=== PATIENT | female | born 1985 | race Caucasian/White ===

== ENCOUNTER 2017-11-23 17:13 | Emergency (ER) | payer BC ==
[2017-11-23 18:03] LABS: ABS Basophils 0 10^3/ul (0-0.2); ABS Eosinophils 0.5 10^3/ul (0-0.6); ABS Lymphocytes 2.2 10^3/ul (1.0-4.8); ABS Monocytes 0.7 10^3/ul (0-0.8); ABS Neutrophils 4.8 10^3/ul (1.5-7.7); ABS Nucleated RBC 0 10^3/ul; Eosinophil % 6.2 % (0-6); Hematocrit 38 % (35-47); Lymphocyte % 26.5 % (25-47); Mean Corpuscular HGB Conc 34 g/dl (31-36); Mean Corpuscular Hemoglobin 32 pg (27-31); Mean Corpuscular Volume 96 fL (80-97); Mean Platelet Volume 8.2 um3 (7.4-10.4); Nucleated Red Blood Cells % 0; Platelet Count 218 10^3/ul (150-450); Red Cell Distribution Width 13 % (10.5-15); White Blood Count 8.2 10^3/ul (3.5-10.8)
[2017-11-23 18:24] LABS: EGFR Non-African American 64.7 (>60)
--- NOTE | 2017-11-23 19:03 | RAD ---
Indication: RIGHT lower quadrant pain with pressure and midline pain for 4 days. Comparison: May 20, 2005 CT. Technique: Transvaginal pelvic ultrasound. Report: 6.6 x 3.3 x 5.3 cm anteverted uterus with 6.3 mm endometrium. IUD appears in appropriate position within the endometrial cavity. Physiologic small volume of free fluid in the cul-de-sac. 3.9 x 1.8 x 2.8 cm RIGHT ovary with documented vascular flow is remarkable for a unilocular 2.0 x 1.6 x 2.2 cm cyst without complex features consistent with a follicular cyst. 3.7 x 2.6 x 3.9 cm LEFT ovary with documented vascular flow is remarkable for a 2.5 x 2.0 x 2.4 cm cyst with a reticulated pattern of low level internal echoes devoid of intrinsic vascularity consistent with a hemorrhagic cyst without concern given small size. Negative for extra ovarian adnexal region lesions. IMPRESSION: 1. IUD appears in appropriate position. 2. Physiologic small volume of free fluid. 3. 2.2 cm follicular cyst at the RIGHT ovary and 2.5 cm hemorrhagic cyst at the LEFT ovary without concern.
--- NOTE | 2017-11-23 19:05 | RAD ---
INDICATION: RIGHT lower quadrant pain during exam in the emergency room. COMPARISON: May 20, 2005 CT documenting the appendix superficial to the RIGHT external iliac vessels. TECHNIQUE: Ultrasound of the right lower quadrant. REPORT AND IMPRESSION: Nondiagnostic exam due to nonvisualization of the appendix. No RIGHT lower quadrant free fluid or adenopathy visualized to suggest an acute RIGHT lower quadrant inflammatory process. Correlate with clinical assessment and consider CT for further evaluation if deemed appropriate.
[2017-11-23 19:16] LABS: Urine Appearance Clear; Urine Blood 1+ (Negative); Urine Color Yellow; Urine Ketones Negative (Negative); Urine Protein Negative (Negative); Urine Specific Gravity 1.025 (1.010-1.030); Urine Urobilinogen Negative (Negative)
[2017-11-23] MEDS ORDERED: Iohexol 300* (CONTRAST) 10 ML SDV IV ONE (19:32)
[2017-11-23] MEDS ORDERED: Ketorolac INJ* 30 MG/ML 1 ML VIAL IV PUSH ONE (19:48)
[2017-11-23 21:07] VITALS: BP 124/72
--- NOTE | 2017-11-24 00:14 | ED ---
Matthew Larson Jennifer, scribed for Ricci Hill MD on 11/23/17 at 2007 . Progress - Progress Note Progress Note: The patient is a sign out from Dr. Meredith pending US appendix, US transvaginal. The patient is a 32 year old female with pain near umbilicus, more on the left side. US shows left hemorrhagic cyst. McBurney's point was nontender. No rebound or guarding. Most pain is left pelvic and midline pelvic. Patient was given Toradol. - Results/Orders Results/Orders: Transvaginal US. Interpreted by a radiologist. IMPRESSION: 1. IUD appears in appropriate position. 2. Physiologic small volume of free fluid. 3. 2.2 cm follicular cyst at the RIGHT ovary and 2.5 cm hemorrhagic cyst at the LEFT ovary without concern. Dr. Hill has reviewed this report. Appendix US. Interpreted by a radiologist. IMPRESSION:Nondiagnostic exam due to nonvisualization of the appendix. No RIGHT lower quadrant free fluid or adenopathy visualized to suggest an acute RIGHT lower quadrant inflammatory process. Correlate with clinical assessment and consider CT for further evaluation if deemed appropriate. Dr. Hill has reviewed this report. Re-Evaluation - Re-Evaluation First Eval Re-Evaluation Time: 20:17 Change: Improved Comment: Patient's pain is much better with Toradol. Course/Dx - Course Course Of Treatment: Patient was signed out from outgoing ER physician to me. She had an ultrasound of her pelvis and right lower quadrant. She has no McBurney point tenderness though the appendix was not seen on ultrasound. She is thin and likely has no visualization as it is noninflamed. Her pain is mostly left of midline and suprapubic/pelvic. She has a hemorrhagic cyst seen on ultrasound in that region. She is very comfortable and her pain was relieved with Toradol. There is no rebound or guarding. She has had symptoms over 4 days which is very unlikely for appendicitis. Regardless, she was given appendicitis warnings and will follow up with her primary care physician. - Diagnoses Provider Diagnoses: Hemorrhagic ovarian cyst Discharge - Sign-Out/Discharge Documenting (check all that apply): Discharge/Admit/Transfer - Discharge Plan Condition: Improved Disposition: HOME Patient Education Materials: Ovarian Cyst (ED) Referrals: Loly Guzman MD [Primary Care Provider] - Additional Instructions: Call first thing in the morning to follow up with your regular doctor or OB/ BIOSTATISTICS PROFESSOR. Ibuprofen as needed for discomfort. Return with fever, pain in the right lower quadrant as shown, vomiting, worse or other concerns as discussed. - Billing Disposition and Condition Condition: STABLE Disposition: HOME The documentation as recorded by the Matthew león Jennifer accurately reflects the service I personally performed and the decisions made by me, Ricci Hill MD.
--- NOTE | 2017-12-06 07:58 | ED ---
Pricilla Larson Elizabeth, scribed for Ervin Meredith MD on 11/23/17 at 1748 . Abdominal Pain/Female - HPI Summary HPI Summary: This patient is a 32 year old F presenting to [facility] upon referral from [facility] with a chief complaint of abd pain since 3 days ago. The patient notes that she is concerned that it may be appendicitis. The patient rates the pain 5/10 in severity. Symptoms aggravated by eating. Symptoms alleviated by nothing. Patient denies dysuria, hematuria, diarrhea, and vaginal discharge. LNMP was 2-3 weeks ago. The patient has previously had a cholecystectomy. - History of Current Complaint Chief Complaint: EDAbdPain Stated Complaint: ABD PAIN Time Seen by Provider: 11/23/17 17:36 Hx Obtained From: Patient Onset/Duration: Lasting Days - 3 days, Still Present Timing: Constant Severity Initially: Mild Severity Currently: Mild Pain Intensity: 5 Pain Scale Used: 0-10 Numeric Location: Discrete At: RLQ, Discrete At: LLQ Radiates: Yes Aggravating Factor(s): Food Alleviating Factor(s): Nothing Associated Signs and Symptoms: Negative: Constipation, Vaginal Discharge, Diarrhea Allergies/Adverse Reactions: Allergies Allergy/AdvReac Type Severity Reaction Status Date / Time paroxetine [From Paxil] Allergy Unknown Verified 11/23/17 17:26 Reaction Details pineapple Allergy Hives Verified 11/23/17 17:27 PMH/Surg Hx/FS Hx/Imm Hx Endocrine/Hematology History: Denies: Hx Diabetes Cardiovascular History: Denies: Hx Hypertension Respiratory History: Denies: Hx Chronic Obstructive Pulmonary Disease (COPD) - Cancer History Hx Chemotherapy: No Hx Radiation Therapy: No - Surgical History Surgery Procedure, Year, and Place: cholecystectomy Infectious Disease History: No Infectious Disease History: Denies: Traveled Outside the [place] in Last 30 Days - Family History Known Family History: Negative: Diabetes - Social History Alcohol Use: Rare Substance Use Type: Reports: None Smoking Status (MU): Heavy Every Day Tobacco Smoker Review of Systems Negative: Fever, Chills Negative: Erythema Negative: Sore Throat Negative: Chest Pain Negative: Shortness Of Breath, Cough Positive: Abdominal Pain. Negative: Vomiting, Diarrhea, Nausea Negative: dysuria, discharge, hematuria Negative: Myalgia, Edema Negative: Rash Neurological: Other - NEGATIVE DIZZINESS All Other Systems Reviewed And Are Negative: Yes Physical Exam - Summary Physical Exam Summary: Constitutional: Well-developed, Well-nourished, Alert. (-) Distressed Skin: Warm, Dry HENT: Normocephalic; Atraumatic Eyes: Conjunctiva normal Neck: Musculoskeletal ROM normal neck. (-) JVD, (-) Stridor, (-) Tracheal deviation Cardio: Rhythm regular, rate normal, Heart sounds normal; Intact distal pulses; The pedal pulses are 2+ and symmetric. Radial pulses are 2+ and symmetric. (-) Murmur Pulmonary/Chest wall: Effort normal. (-) Respiratory distress, (-) Wheezes, (-) Rales Abd: Soft, RLQ Tenderness, (-) Distension, (-) Guarding, (-) Rebound Musculoskeletal: (-) Edema Lymph: (-) Cervical adenopathy Neuro: Alert, Oriented x3 Psych: Mood and affect Normal Triage Information Reviewed: Yes Vital Signs On Initial Exam: Initial Vitals Temp Pulse Resp BP Pulse Ox 98.6 F 81 16 164/89 98 11/23/17 17:21 11/23/17 17:21 11/23/17 17:21 11/23/17 17:21 11/23/17 17:21 Vital Signs Reviewed: Yes Diagnostics - Vital Signs Vital Signs Temp Pulse Resp BP Pulse Ox 11/23/17 17:21 98.6 F 81 16 164/89 98 - Laboratory Lab Results: Lab Results 11/23/17 11/23/17 11/23/17 Range/Units 17:48 17:48 17:48 WBC 8.2 (3.5-10.8) 10^3/ul RBC 4.00 (4.0-5.4) 10^6/ul Hgb 13.0 (12.0-16.0) g/dl Hct 38 (35-47) % MCV 96 (80-97) fL MCH 32 H (27-31) pg MCHC 34 (31-36) g/dl RDW 13 (10.5-15) % Plt Count 218 (150-450) 10^3/ul MPV 8.2 (7.4-10.4) um3 Neut % (Auto) 58.0 (38-83) % Lymph % (Auto) 26.5 (25-47) % [place] % (Auto) 8.8 H (0-7) % Eos % (Auto) 6.2 H (0-6) % Baso % (Auto) 0.5 (0-2) % Absolute Neuts (auto) 4.8 (1.5-7.7) 10^3/ul Absolute Lymphs (auto) 2.2 (1.0-4.8) 10^3/ul Absolute Monos (auto) 0.7 (0-0.8) 10^3/ul Absolute Eos (auto) 0.5 (0-0.6) 10^3/ul Absolute Basos (auto) 0 (0-0.2) 10^3/ul Absolute Nucleated RBC 0 10^3/ul Nucleated RBC % 0 Sodium 136 L (139-145) mmol/L Potassium TNP Chloride 106 (101-111) mmol/L Carbon Dioxide 25 (22-32) mmol/L Anion Gap 5 (2-11) mmol/L BUN 18 (6-24) mg/dL Creatinine 1.00 H (0.51-0.95) mg/dL Est GFR ( Amer) 83.2 (>60) Est GFR (Non-Af Amer) 64.7 (>60) BUN/Creatinine Ratio 18.0 (8-20) Glucose 92 (70-100) mg/dL Lactic Acid 0.6 (0.5-2.0) mmol/L Calcium 9.2 (8.6-10.3) mg/dL Total Bilirubin 0.40 (0.2-1.0) mg/dL AST TNP ALT 9 (7-52) U/L Alkaline Phosphatase 46 (34-104) U/L C-Reactive Protein 5.07 H (< 5.00) mg/L Total Protein 7.3 (6.4-8.9) g/dL Albumin 4.4 (3.2-5.2) g/dL Globulin 2.9 (2-4) g/dL Albumin/Globulin Ratio 1.5 (1-3) Lipase 24 (11.0-82.0) U/L Beta HCG, Quant < 0.60 mIU/mL Urine Color Urine Appearance Urine pH (5-9) Ur Specific [place] (1.010-1.030) Urine Protein (Negative) Urine Ketones (Negative) Urine Blood (Negative) Urine Nitrate (Negative) Urine Bilirubin (Negative) Urine Urobilinogen (Negative) Ur Leukocyte Esterase (Negative) Urine WBC (Auto) (Absent) Urine RBC (Auto) (Absent) Ur Squamous Epith Cells (Absent) Urine Bacteria (Absent) Urine Glucose (Negative) 11/23/17 11/23/17 Range/Units 18:51 19:27 WBC (3.5-10.8) 10^3/ul RBC (4.0-5.4) 10^6/ul Hgb (12.0-16.0) g/dl Hct (35-47) % MCV (80-97) fL MCH (27-31) pg MCHC (31-36) g/dl RDW (10.5-15) % Plt Count (150-450) 10^3/ul MPV (7.4-10.4) um3 Neut % (Auto) (38-83) % Lymph % (Auto) (25-47) % [place] % (Auto) (0-7) % Eos % (Auto) (0-6) % Baso % (Auto) (0-2) % Absolute Neuts (auto) (1.5-7.7) 10^3/ul Absolute Lymphs (auto) (1.0-4.8) 10^3/ul Absolute Monos (auto) (0-0.8) 10^3/ul Absolute Eos (auto) (0-0.6) 10^3/ul Absolute Basos (auto) (0-0.2) 10^3/ul Absolute Nucleated RBC 10^3/ul Nucleated RBC % Sodium (139-145) mmol/L Potassium 3.9 Chloride (101-111) mmol/L Carbon Dioxide (22-32) mmol/L Anion Gap (2-11) mmol/L BUN (6-24) mg/dL Creatinine (0.51-0.95) mg/dL Est GFR ( Amer) (>60) Est GFR (Non-Af Amer) (>60) BUN/Creatinine Ratio (8-20) Glucose (70-100) mg/dL Lactic Acid (0.5-2.0) mmol/L Calcium (8.6-10.3) mg/dL Total Bilirubin (0.2-1.0) mg/dL AST 14 ALT (7-52) U/L Alkaline Phosphatase (34-104) U/L C-Reactive Protein (< 5.00) mg/L Total Protein (6.4-8.9) g/dL Albumin (3.2-5.2) g/dL Globulin (2-4) g/dL Albumin/Globulin Ratio (1-3) Lipase (11.0-82.0) U/L Beta HCG, Quant mIU/mL Urine Color Yellow Urine Appearance Clear Urine pH 6.0 (5-9) Ur Specific [place] 1.025 (1.010-1.030) Urine Protein Negative (Negative) Urine Ketones Negative (Negative) Urine Blood 1+ A (Negative) Urine Nitrate Negative (Negative) Urine Bilirubin Negative (Negative) Urine Urobilinogen Negative (Negative) Ur Leukocyte Esterase Negative (Negative) Urine WBC (Auto) Trace(0-5/hpf) (Absent) Urine RBC (Auto) 1+(3-5/hpf) A (Absent) Ur Squamous Epith Cells Present A (Absent) Urine Bacteria 1+ A (Absent) Urine Glucose Negative (Negative) Result Diagrams: 11/23/17 17:48 11/23/17 19:27 Lab Statement: Any lab studies that have been ordered have been reviewed, and results considered in the medical decision making process. Re-Evaluation - Re-Evaluation 1st re-eval Re-Evaluation Time: 18:55 Change: Worse Comment: Patient reports her periumbilical pain is worse after drinking the contrast. She refuses any pain medication. Abdominal Pain Fem Course/Dx - Course Course Of Treatment: This patient is a 32 year old F presenting to [facility] upon referral from [facility] with a chief complaint of abd pain since 3 days ago. The patient notes that she is concerned that it may be appendicitis. Patient denies constipation, dysuria, hematuria, diarrhea, and vaginal discharge. The patient has previously had a cholecystectomy. Upon re- evaluation, the patient reports that her periumbilical pain is worse after drinking the contrast but refuses any pain medications. Patient will be signed out to Dr. Hill upon shift change, pending imaging. - Diagnoses Provider Diagnoses: Hemorrhagic ovarian cyst Discharge - Sign-Out/Discharge Documenting (check all that apply): Sign-Out Patient Signing out patient TO: Ricci Hill - Discharge Plan Condition: Improved Disposition: HOME Discharge Disposition Comment: Patient is signed out to Dr. Hill upon shift change, pending imaging. Patient Education Materials: Ovarian Cyst (ED) Referrals: Loly Guzman MD [Primary Care Provider] - Additional Instructions: Call first thing in the morning to follow up with your regular doctor or OB/ TOASTER ELEMENT REPAIRER. Ibuprofen as needed for discomfort. Return with fever, pain in the right lower quadrant as shown, vomiting, worse or other concerns as discussed. - Billing Disposition and Condition Condition: IMPROVED Disposition: Home The documentation as recorded by the Pricilla león Elizabeth accurately reflects the service I personally performed and the decisions made by me, Ervin Meredith MD.
== END 2017-11-23 21:08 | disposition home or self-care (01) ==
LOC: ED 17:13
DX: N83.202 Unspecified ovarian cyst, left side (principal); N83.01 Follicular cyst of right ovary; F17.200 Nicotine dependence, unspecified, uncomplicated; Z97.5 Presence of (intrauterine) contraceptive device; Z88.8 Allergy status to other drugs, medicaments and biological substances
CPT/HCPCS: 36415; 76705; 76830; 80053; 81003; 81015; 83605; 83690; 84702; 85025; 86140; 87086; 96374; 99283; J1885

== ENCOUNTER 2019-03-27 18:29 | Emergency (ER) | payer BC, OTHER ==
--- OUTSIDE RECORDS SUMMARY | 2019-03-27 19:10 | XMS REPORT | Continuity of Care Document ---
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 [phone] Medicine Problems Description No Information Available Social History Type Date Description Comments Sex Unknown ETOH Use Drinks 1 Alcoholic Beverage Per Week Tobacco Use Start: Unknown Light tobacco smoker (10 or fewer cigarettes/day) Smoking Status Reviewed: 02/15/19 Light tobacco smoker (10 or fewer cigarettes/day) Exercise Type/Frequency Exercises regularly Allergies, Adverse Reactions, Alerts Active Allergies Reaction Severity Comments Date Paxil seizures 08/15/2017 Pineapple Extract Anaphylaxis Severe 08/15/2017 Medications Active Medications SIG Qnty Indications Ordering Provider Date Probiotic Daily 1 by mouth every Unknown Capsules day Ibuprofen by mouth every 4 Unknown 400mg Tablets to 6 hours as needed Immunizations Description No Information Available Vital Signs Date Vital Result Comment 02/15/2019 2:04pm Height 68 inches 5'8" Weight 132.00 lb Heart Rate 84 /min BP Systolic Sitting 126 mmHg BP Diastolic Sitting 72 mmHg Respiratory Rate 14 /min BMI (Body Mass Index) 20.1 kg/m2 07/26/2018 10:28am Weight 135.00 lb Heart Rate 72 /min BP Systolic 102 mmHg BP Diastolic 64 mmHg Respiratory Rate 16 /min Body Temperature 98.1 F Results Description No Information Available Procedures Date Code Description Status 07/18/2018 [id number] Mammogram Completed 08/09/2017 [id number] Mammogram Completed Medical Devices Description No Information Available Encounters Description No Information Available Assessments Date Code Description Provider 02/15/2019 N63.10 Unspecified lump in the right breast, Radha Baca MD unspecified quadrant 02/15/2019 N63.20 Unspecified lump in the left breast, Radha Baca MD unspecified quadrant Plan of Treatment 02/15/2019 - Radha Baca MDN63.10 Unspecified lump in the right breast, unspecified quadrantFollow up:As [id number] Unspecified lump in the left breast, unspecified quadrant Functional Status Description No Information Available Mental Status Description No Information Available Referrals Description No Information Available
[2019-03-27] MEDS ORDERED: Tetan/Diph/Pertus SYR(Tdap)* 0.5 ML SYR(BOOSTRIX) use SYR contains LATEX IM ONE (19:51)
[2019-03-27] MEDS ORDERED: Acetaminophen TAB* 325 MG PO ONE (20:52)
[2019-03-27] MEDS ORDERED: Ibuprofen TAB* 600 MG PO ONE (20:52)
[2019-03-27 21:03] VITALS: BP 110/75
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
== END 2019-03-27 21:02 | disposition home or self-care (01) ==
LOC: ED 18:29
DX: S40.022A Contusion of left upper arm, initial encounter (principal); M54.9 Dorsalgia, unspecified; Z23 Encounter for immunization; V48.5XXA Car driver injured in noncollision transport accident in traffic accident, initial encounter; Y92.410 Unspecified street and highway as the place of occurrence of the external cause; Z90.49 Acquired absence of other specified parts of digestive tract; Z88.8 Allergy status to other drugs, medicaments and biological substances; F17.200 Nicotine dependence, unspecified, uncomplicated; M51.36 Other intervertebral disc degeneration, lumbar region
CPT/HCPCS: 70450; 72070; 72100; 90471; 90715; 99282; A9270-GY